=== PATIENT | female | born 1940 | race African-American/Black ===

== ENCOUNTER 2024-11-25 15:37 | Inpatient (IN) | payer MEDICARE, OTHER ==
[~2024-11-25] VITALS: Ht 160 cm; Wt 58.7 kg
[2024-11-25] MEDS ORDERED: ACETAMINOPHEN 325 MG TABLET PO PRN (16:00)
[2024-11-25] MEDS ORDERED: ONDANSETRON HCL 4 MG/2 ML VIAL IVP PRN (16:00)
[2024-11-25] MEDS ORDERED: BISACODYL 10 MG RECTAL RECTAL SUPPOSITORY PR PRN (16:00)
[2024-11-25 16:02] LABS: BASOPHILS % (AUTO) 0.9 % (0.0-2.0); HEMATOCRIT 36.2 % (36-46); HEMOGLOBIN 11.6 g/dL (12.0-16.0); LYMPHOCYTES # (AUTO) 1.8 K/uL (1.0-4.8); LYMPHOCYTES % (AUTO) 30.6 % (22.0-44.0); MEAN CORPUSCULAR HEMOGLOBIN 28.8 pg (26.0-34.0); MEAN CORPUSCULAR HGB CONC 31.9 G/dL (31.0-37.0); MEAN CORPUSCULAR VOLUME 90 fL (80-100); MONOCYTES # (AUTO) 0.5 K/uL (0.1-1.0); MONOCYTES % (AUTO) 8.8 % (2.0-9.0); NEUTROPHILS # (AUTO) 3.4 K/uL (1.8-7.7); NEUTROPHILS % (AUTO) 58.7 % (40.0-70.0); PLATELET COUNT (AUTO) 283 K/uL (150-450); RED BLOOD CELL COUNT(AUTO) 4.02 MIL/uL (4.00-5.20); RED CELL DISTRIBUTION WIDTH 15.1 % (11.5-14.5); WHITE BLOOD COUNT (AUTO) 5.8 K/uL (4.5-11.0)
[2024-11-25 16:12] LABS: ANION GAP 8 mmol/L (8-16); CALCIUM, TOTAL 9.2 mg/dL (8.8-10.5); CARBON DIOXIDE 26 mmol/L (22-29); CHLORIDE 107 mmol/L (98-107); CREATININE 1.01 mg/dL (0.60-1.30); GLOMERULAR FILTR. RATE CALC 52 mL/min (>60); GLUCOSE,RANDOM 101 mg/dL (70-110); POTASSIUM 3.3 mmol/L (3.5-5.1); SODIUM SERUM 141 mmol/L (136-145); UREA NITROGEN, BLOOD 8 mg/dL (7-18)
[2024-11-25 16:14] LABS: PROTHROMBIN TIME 10.9 SEC (9.4-11.6)
[2024-11-25] MEDS ORDERED: 0.9% SODIUM CHLORIDE 10 ML SYRINGE IVP ONE (16:14)
[2024-11-25] MEDS ORDERED: IOHEXOL 300 MG/ML 100 ML VIAL ONE (16:15)
[2024-11-25] MEDS ORDERED: SODIUM CHLORIDE 0.9% 100 ML ONE (16:15)
[2024-11-25 16:21] LABS: ALANINE AMINOTRANSFERASE 8 U/L (12-78); ALBUMIN 2.6 g/dL (3.4-5.0); ALKALINE PHOSPHATASE 83 U/L (46-116); ASPARTATE AMINOTRANSFERASE 14 U/L (15-37); BILIRUBIN,TOTAL 0.4 mg/dL (0.1-1.0); CHOL/HDL RATIO 3.7 (3.9-5.7); CHOLESTEROL 199 mg/dL (131-200); HDL CHOLESTEROL 54 mg/dL (40-60); LDL CHOL (CALC.) 124 mg/dL (0-130); TOTAL PROTEIN, SERUM 7.2 g/dL (6.4-8.2); TRIGLYCERIDES 107 mg/dL (15-150)
[2024-11-25 16:22] LABS: TROPONIN I-HIGH SENSITIVITY 61 ng/L (<51)
[2024-11-25] MEDS ORDERED: POTASSIUM CHL 10 MEQ/WATER 50 ML IV PRN (16:45)
[2024-11-25 16:50] LABS: APPEARANCE,URINE CLEAR (CLEAR); BILIRUBIN,URINE NEGATIVE (NEGATIVE); COLOR,URINE LIGHT YELLOW (YELLOW); GLUCOSE, URINE (UA) NEGATIVE (NEGATIVE); KETONES,URINE NEGATIVE (NEGATIVE); LEUKOCYTE ESTERASE ,URINE NEGATIVE (NEGATIVE); NITRATE,URINE NEGATIVE (NEGATIVE); OCCULT BLOOD,URINE NEGATIVE (NEGATIVE); PH,URINE 6.5 (5.0-8.0); PROTEIN,URINE NEGATIVE (NEGATIVE); UROBILINOGEN,URINE <=1.0 mg/dL (<=1.0)
[2024-11-25] MEDS: CLOPIDOGREL BISULFATE 75 MG TABLET PO SCH (17:33)
[2024-11-25] MEDS: ATORVASTATIN CALCIUM 40 MG TABLET PO SCH (17:33)
[2024-11-25] MEDS: ASPIRIN 81 MG CHEWABLE TABLET PO SCH (17:33)
[2024-11-25] MEDS: SODIUM CHLORIDE 0.9% 1,000 ML IV ONE (17:34)
[2024-11-25 19:14] LABS: ALCOHOL, URINE DRUG SCREEN NEGATIVE (NEGATIVE); AMPHET/METH SCREEN,URINE NEGATIVE (NEGATIVE); BARBITURATE SCREEN, URINE NEGATIVE (NEGATIVE); BENZODIAZEPINES SCREEN,URINE NEGATIVE (NEGATIVE); CANNABINOID SCREEN,URINE NEGATIVE (NEGATIVE); COCAINE SCREEN,URINE NEGATIVE (NEGATIVE); METHADONE SCREEN, URINE NEGATIVE (NEGATIVE); OPIATE SCREEN,URINE NEGATIVE (NEGATIVE); PHENCYCLIDINE SCREEN,URINE NEGATIVE (NEGATIVE)
[2024-11-25] MEDS: POTASSIUM CHLORIDE 20 MEQ ER TABLET PO PRN (19:31)
[2024-11-25 20:03] LABS: PH,URINE DRUG SCREEN 6.5 (5.0-8.0)
[2024-11-25 21:10] VITALS: BP 158/88; PULSE 60; RESP 18; TEMP 98.3; O2SAT 97
[2024-11-25 21:21] LABS: TROPONIN I-HIGH SENSITIVITY 65 ng/L (<51)
[2024-11-25] MEDS: CHLORHEXIDINE GLUCONATE 2% TOWELETTE [2'S/6'S] TP SCH (22:00)
[2024-11-26] VITALS (7 sets, daily range): BP systolic 125–152; BP diastolic 70–95; PULSE 67–72; RESP 16–18; TEMP 97.8–98; O2SAT 97–100
[2024-11-26 00:16] LABS: TROPONIN I-HIGH SENSITIVITY 78 ng/L (<51)
[2024-11-26] MEDS: PANTOPRAZOLE SODIUM 40 MG/VIAL IVP SCH (08:32)
[2024-11-26 08:39] LABS: TROPONIN I-HIGH SENSITIVITY 71 ng/L (<51)
[2024-11-26] MEDS ORDERED: CLOP75TA60 PO (10:41)
[2024-11-26] MEDS ORDERED: ASPI-1450 PO (10:42)
[2024-11-26] MEDS ORDERED: ATOR40TA28 PO (10:43)
[2024-11-26 12:53] LABS: TROPONIN I-HIGH SENSITIVITY 75 ng/L (<51)
== END 2024-11-26 18:20 | disposition short-term general hospital (02) | DRG 69 ==
LOC: EMS 15:37 → UNDOADMIN 15:49 → EDH 15:49 → 5S 21:13
PROVIDERS: ADMIT Internal Medicine; ATTEND Internal Medicine
DX: G45.9 Transient cerebral ischemic attack, unspecified (principal); I24.89 Other forms of acute ischemic heart disease; I50.32 Chronic diastolic (congestive) heart failure; F01.50 Vascular dementia, unspecified severity, without behavioral disturbance, psychotic disturbance, mood disturbance, and anxiety; E87.6 Hypokalemia; E78.00 Pure hypercholesterolemia, unspecified; I10 Essential (primary) hypertension; Z86.79 Personal history of other diseases of the circulatory system; Z79.899 Other long term (current) drug therapy; I08.1 Rheumatic disorders of both mitral and tricuspid valves
CPT/HCPCS: 51702; 70496; 70498; 71045; 80053; 80061; 80307; 81003; 82948; 84132; 84484; 85025; 85610; 85730; 86850; 86900; 86901; 92610; 93005; 93306; 97162; 97166; 97535; 99291; J2470; J7030; J7050; Q9967; 36415-L1; 36415-TC; 70450; 70450-TC